=== PATIENT | female | born 1950 | race African-American/Black ===

== ENCOUNTER 2018-03-08 17:02 | Inpatient (IN) | payer OTHER ==
[~2018-03-08] VITALS: Ht 165.1 cm; Wt 83.7 kg
[2018-03-08 17:11] VITALS: Ht 165.1 cm; Wt 83.7 kg
[2018-03-08 19:51] LABS: CALCIUM 8.4 mg/dL (8.5-10.1); CARBON DIOXIDE 31.1 mmol/L (21-32); CHLORIDE SERUM 105 mmol/L (98-107); CREATININE SERUM 0.8 mg/dL (0.6-1.0); GFR1 > 60 mL/min; GLUCOSE SERUM 97 mg/dL (74-106); SODIUM SERUM 142 mmol/L (136-145)
[2018-03-08 19:53] LABS: PLATELET COUNT 414 x10^3mcL (130-400)
[2018-03-08 19:57] LABS: ALBUMIN 3.4 g/dL (3.4-5.0); ALKALINE PHOSPHATASE 146 U/L (46-116); ALT/SGPT 20 U/L (14-59); AST/SGOT 17 U/L (15-37); BILIRUBIN TOTAL 0.4 mg/dL (0.20-1.00); CHOLESTEROL 116 mg/dL (<200); HDL CHOLESTEROL 61 mg/dL (40-60); TOTAL PROTEIN, SERUM 6.8 g/dL (6.4-8.2)
[2018-03-08] MEDS ORDERED: PANTOPRAZOLE SO40 M1 PO (20:25)
[2018-03-08] MEDS ORDERED: GABAPENTIN100 M2 PO (20:25)
[2018-03-08] MEDS ORDERED: LOVASTATIN20 MG PO (20:25)
[2018-03-08] MEDS ORDERED: LOSARTAN POTASS50 M1 PO (20:25)
[2018-03-08 20:26] LABS: MONOCYTE 5 % (0-7); SEGMENTED NEUTROPHILS 70 % (37-75)
[2018-03-08] MEDS ORDERED: ASPIR 8181 MG PO (20:26)
[2018-03-08] MEDS ORDERED: VITAMIN D34000 UNIT PO (20:26)
[2018-03-08] MEDS ORDERED: NATURAL IRON65 MG PO (20:27)
[2018-03-08] MEDS ORDERED: CALCIUM CITRATE (20:27)
[2018-03-08 20:29] LABS: ovalocyte/elliptocyte 1+; rbc morphology (normal/abnorm) ABNORMAL (NORMAL)
[2018-03-08 20:30] LABS: PLATELET MORPHOLOGY PLATELETS NORMAL; tear drop cell (dacryocyte) 1+
[2018-03-08 21:34] LABS: CHOLESTEROL/HDL RATIO 1.9; MAGNESIUM 2.1 mg/dL (1.8-2.4); PHOSPHOROUS 3.1 mg/dL (2.5-4.9)
[2018-03-08 21:42] VITALS: BP 163/65
[2018-03-08 21:44] LABS: FREE T4 0.82 ng/dL (0.76-1.46); FREE THYROXINE INDEX 2.3 ug/dL (1.4-4.5); T4(THYROXINE) 6.5 ug/dL (4.7-13.3)
[2018-03-08 23:01] LABS: T3 TOTAL 0.99 ng/mL
[2018-03-08 23:38] LABS: microscopic required? YES; urine erythrocyte NEGATIVE (NEGATIVE)
[2018-03-08 23:52] LABS: AMPHETAMINE QUAL UR NONE DETECTED (See below)
[2018-03-08 23:57] LABS: IRON 10 ug/dL (50-170); TOTAL IRON BINDING CAPACITY 447 ug/dL (250-450)
[2018-03-09] VITALS (12 sets, daily range): BP systolic 127–172; BP diastolic 62–89
[2018-03-09 00:23] LABS: RED BLOOD CELLS 2.97 M/mm3 (4.10-5.10)
[2018-03-09 06:21] LABS: PLATELET COUNT 308 x10^3mcL (130-400)
[2018-03-09 07:09] LABS: CALCIUM 8.5 mg/dL (8.5-10.1); CARBON DIOXIDE 27.6 mmol/L (21-32); CHLORIDE SERUM 108 mmol/L (98-107); CREATININE SERUM 0.8 mg/dL (0.6-1.0); GFR1 > 60 mL/min; GLUCOSE SERUM 85 mg/dL (74-106); POTASSIUM SERUM 3.9 mmol/L (3.5-5.1); SODIUM SERUM 143 mmol/L (136-145)
[2018-03-09 08:45] LABS: RED CELL DISTRIBUTION WIDTH 20.4 % (11.5-14.5)
[2018-03-09 11:18] LABS: ATYPICAL LYMPH 3 %; BAND NEUTROPHIL 0 % (0-10); BASOPHIL 0 % (0-2); MONOCYTE 6 % (0-7); SEGMENTED NEUTROPHILS 60 % (37-75)
[2018-03-09 11:19] LABS: rbc morphology (normal/abnorm) ABNORMAL (NORMAL)
[2018-03-09 11:20] LABS: PLATELET MORPHOLOGY PLATELETS NORMAL
[2018-03-09 20:06] LABS: BASOPHIL % 5.7 % (0-2); PLATELET COUNT 269 x10^3mcL (130-400); RED CELL DISTRIBUTION WIDTH 21.6 % (11.5-14.5)
[2018-03-09 20:07] LABS: rbc morphology (normal/abnorm) ABNORMAL (NORMAL)
[2018-03-10] VITALS (9 sets, daily range): BP systolic 141–165; BP diastolic 66–88
[2018-03-10 06:08] LABS: PLATELET COUNT 385 x10^3mcL (130-400)
[2018-03-10 06:26] LABS: BASOPHIL % 0.3 % (0-2)
[2018-03-10 06:32] LABS: CALCIUM 8.6 mg/dL (8.5-10.1); CARBON DIOXIDE 29.4 mmol/L (21-32); CHLORIDE SERUM 105 mmol/L (98-107); CREATININE SERUM 0.9 mg/dL (0.6-1.0); GFR1 > 60 mL/min; GLUCOSE SERUM 92 mg/dL (74-106); POTASSIUM SERUM 3.4 mmol/L (3.5-5.1); SODIUM SERUM 140 mmol/L (136-145)
[2018-03-10 06:53] LABS: RED CELL DISTRIBUTION WIDTH 23.3 % (11.5-14.5)
[2018-03-11 05:40] VITALS: BP 135/66
[2018-03-11 07:28] LABS: CARBON DIOXIDE 27.3 mmol/L (21-32); CHLORIDE SERUM 108 mmol/L (98-107); CREATININE SERUM 0.7 mg/dL (0.6-1.0); GFR1 > 60 mL/min; GLUCOSE SERUM 95 mg/dL (74-106); POTASSIUM SERUM 3.5 mmol/L (3.5-5.1); SODIUM SERUM 144 mmol/L (136-145)
[2018-03-11 08:37] LABS: BASOPHIL % 0.1 % (0-2); PLATELET COUNT 384 x10^3mcL (130-400)
[2018-03-11 08:38] LABS: RED CELL DISTRIBUTION WIDTH 23.4 % (11.5-14.5)
[2018-03-11 09:50] VITALS: BP 137/64
[2018-03-11 10:39] VITALS: BP 137/64
[2018-03-11 12:31] LABS: ovalocyte/elliptocyte 1+; rbc morphology (normal/abnorm) ABNORMAL (NORMAL); schistocyte (helmet cell) 1+; tear drop cell (dacryocyte) 1+
== END 2018-03-11 13:05 | disposition home or self-care (01) | DRG 812 ==
LOC: ED 17:02 → DU 21:07
PROVIDERS: Emergency Medicine; Family Medicine; Internal Medicine Gastroenterology
PROC: 30233N1 Transfusion of Nonautologous Red Blood Cells into Peripheral Vein, Percutaneous Approach (ICD-10-PCS; 2018-03-09)
PROC: 07DR3ZX Extraction of Iliac Bone Marrow, Percutaneous Approach, Diagnostic (ICD-10-PCS; 2018-03-10)
PROC: 0DB98ZX Excision of Duodenum, Via Natural or Artificial Opening Endoscopic, Diagnostic (ICD-10-PCS; principal; 2018-03-10 07:30)
PROC: 0DB68ZX Excision of Stomach, Via Natural or Artificial Opening Endoscopic, Diagnostic (ICD-10-PCS; 2018-03-10 07:30)
PROC: 0W3P8ZZ Control Bleeding in Gastrointestinal Tract, Via Natural or Artificial Opening Endoscopic (ICD-10-PCS; 2018-03-10 07:30)
PROC: 0DJD8ZZ Inspection of Lower Intestinal Tract, Via Natural or Artificial Opening Endoscopic (ICD-10-PCS; 2018-03-10 07:30)
DX: D50.9 Iron deficiency anemia, unspecified (principal); Q27.33 Arteriovenous malformation of digestive system vessel; E87.6 Hypokalemia; R82.71 Bacteriuria; I10 Essential (primary) hypertension; E78.5 Hyperlipidemia, unspecified; Z68.29 Body mass index [BMI] 29.0-29.9, adult
CPT/HCPCS: 43235; 45378; 49180; 83880; 84439; J1610; J2001; J2250; J2310; J2916; J3010; J3490; J7030; J7050; P9016; Q0092; Q0163